=== PATIENT | male | born 1950 | race Caucasian/White ===

== ENCOUNTER → 2016-12-21 | Day surgery (SDC) | payer OTHER ==
[~2016-12-21] MED LIST: FUROSEMIDE 20 MG/2 ML VIAL ONE; GENTAMICIN SULFATE 80 MG/2 ML VIAL ONE; LACTATED RINGER'S 1000 ML INJ 1,000 ML ONE; MIDAZOLAM HCL 2 MG/2 ML VIAL ONE; ONDANSETRON HCL 4 MG/2 ML VIAL IV PUSH ONE; PROPOFOL 100 MG/10 ML INJ IV ONE; SODIUM CHLORIDE 0.9% 100 ML MINIBAG IV ONE
--- NOTE | 2016-12-21 11:24 | TN ---
cc: LEONARD HOSKINS M.D. DATE OF SURGERY 12/21/2016 PREOPERATIVE DIAGNOSIS Left ureteral calculi. POSTOPERATIVE DIAGNOSIS Left ureteral calculi. PROCEDURE 1. Cystourethroscopy with left ureteroscopic holmium laser lithotripsy CPT code 63994) 2. Cystourethroscopy with left ureteral stent removal (CPT code 68124) INDICATIONS Mr. 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 FINDINGS Normal anterior urethra. The prostatic urethra shows trilobular hyperplasia with an elevated and moderately obstructing prostate bladder neck. The ureteral orifice on the right normal size, shape and position effluxing clear urine. On the left is a double-J ureteral stent emerging. There is significant bullous edema in the area of the ureteral orifice on the left. There are no stones identified within the bladder itself. There are no suspicious lesions or tumors identified either. The ureteroscopy showed two approximately two to three 5-6 mm stones within the distal ureter and some other small debris more proximal. PROCEDURE The procedure, as well as risks and benefits were explained to the patient. Informed consent was obtained. The patient was taken to the major operative theater where he was placed in the supine position. The patient was identified, as well as the operative site. A universal time-out was performed in a standard fashion. At this time, general anesthetic and prophylactic intravenous antibiotics consisting of gentamicin 80 mg was administered. After adequate anesthetic, the patient was placed in low dorsolithotomy position and prepped and draped in the usual standard fashion. At this time, a 22.5 Ivorian cystoscope with a 30 degree lens was inserted into the urethra and bladder. Attention was directed to the left ureteral orifice where the distal end of a double-J ureteral stent was grasped with a grasping forceps and brought out to the meatus. Attempts at passing a guidewire through the opening of the stent were unsuccessful. The scope was placed back alongside the stent and the guidewire again was unable to be passed. At this time, attempts at placing a guidewire alongside the stent was unsuccessful and a guidewire was going to be attempted, however, the stent was inadvertently pulled out and alongside it were two large stones. At this time after removal of the stent completely, the cystoscope was placed and a 0.035 inches hybrid guidewire was passed without difficulty up the ureter into the renal pelvis. At this time, the scope was removed and a semi rigid mini ureteroscope was then placed and in the distal third of the ureter the stones were identified. A 365 micron holmium laser fiber was then used at a setting of 8 joules and the stones were fragmented into tiny pieces which were then able to be easily removed. The scope was then placed all the way to the ureteropelvic junction. No additional stones or abnormalities were identified. There were some very tiny fragments of stones throughout the length of the ureter consistent with encrustation possibly from the stent. After confirming that there was no active bleeding and that there were no appreciable stones within the ureter itself, the safety wire was removed and there was a clear efflux of urine. The stones that were now in the bladder were then evacuated using the cystoscope. After all stones were removed. The bladder was decompressed and the cystoscope removed. The patient tolerated procedure well and emerged from anesthetic without difficulty and transferred to the recovery room in stable condition to be discharged home when criteria is met. There are no obvious complications and photo documentation was obtained during the case. MD CHAPIS Cummings/JACKIE /10:38 AM /11:13 AM
== END | disposition home or self-care (01) ==
LOC: ESDC 07:13
PROVIDERS: ATTEND Urology
DX: N20.1 Calculus of ureter (principal)
CPT/HCPCS: 00918; 52353; 76000; C1769; J1580; J1940; J2250; J2405; J3010; J7120